=== PATIENT | female | born 1990 | race Caucasian/White ===

== ENCOUNTER 2018-10-29 15:30 | Emergency (ER) | payer BC ==
[~2018-10-29] VITALS: Ht 157.5 cm; Wt 57.6 kg
--- NOTE | 2018-10-29 15:46 | NUR ---
[facility]E [facility] CALLED [facility] OFFICE TO REPORT DOG BITE THAT HAPPENED IN [place], DISPATCH STATED HE WOULD HAVE OFFICER RETURN MY CALL
--- NOTE | 2018-10-29 15:53 | ER.PDOC ---
General Chief Complaint: Animal Bite Stated Complaint: dog bite l gluteal area Time seen by MD: 16:00 Source: patient Exam Limitations: no limitations History of Present Illness Onset: just prior to arrival Where: neighbor's Animal: dog Animal Appearance: appeared well Animal Immunizations: UTD Animal Disposition: Animal Known Context of Attack: "provoked " attack, entered animal's domain Severity of Injury: scratched Injury Location: lower extremity Allergies: Coded Allergies: Penicillins (Verified Allergy, Unknown, rash, 07/31/16) Home Meds No Active Prescriptions or Reported Meds Past Medical History Medical History: no pertinent history Family History Significant Family History: no pertinent family hx Social History Smoking: non-smoker Reviewed Nursing Reviewed: Vital Signs, Abn. Noted Review of Systems All Other Systems: Reviewed and Negative Physical Exam General Appearance: alert, no distress Skin: puncture, abrasion Neuro/Vascular/Tendon: no vascular compromise, sensation nml, oriented x3, nml ROM, CN's nml as tested Psych: mood/affect nml HEENT: atraumatic, PERRL, eye lids/conjun nml, ENT nml external inspect. Neck: uninjured, nml inspection Resp/CVS: chest non-tender, breath sounds nml, heart sounds nml, reg. rate & rhythm Abdomen: nml inspection, non-tender Back: nml inspection Extremities: nml inspection, no infection, ROM nml 1 - abraisons Departure Time of Disposition: 16:00 Disposition: 01 HOME, SELF-CARE Impression: Primary Impression: Dog bite Condition: Stable Referrals: COLBY ASHTON NP (PCP) PRIMARY CARE PROVIDER Scripts No Active Prescriptions or Reported Meds Duration or Time Spent with Pa: 10 min DIDI ALMEIDA MD Oct 29, 2018 15:53
[2018-10-29 15:54] VITALS: BP 128/75
[2018-10-29] MEDS ORDERED: TRIPLE ANTIBIOTIC OINTMENT TP ONE (15:57)
--- NOTE | 2018-10-29 16:00 | NUR ---
[facility] OFFICER CALLED BACK AND GOT PT INFORMATION, STATED HE WOULD BE IN CONTACT WITH THE PT LATER THAT HE WAS NOT ABLE TO COME TO THE ED NOW
--- NOTE | 2018-10-29 16:05 | NUR ---
DRESSING CLEANED ABRASION WITH SURGICAL SOAP AND SALINE THEN PATTED DRY, APPLIED NEOSPORIN THEN COVERED WITH TELFA AND MEDIPORE TAPE
[2018-10-29 16:47] VITALS: BP 128/75
== END 2018-10-29 16:20 | disposition home or self-care (01) ==
LOC: ER 15:30
DX: S31.825A Open bite of left buttock, initial encounter (principal); Z88.0 Allergy status to penicillin; W54.0XXA Bitten by dog, initial encounter; Y93.89 Activity, other specified; Y92.098 Other place in other non-institutional residence as the place of occurrence of the external cause; Y99.8 Other external cause status
CPT/HCPCS: 99282; 99283